=== PATIENT | female | born 1985 | race African-American/Black ===

== ENCOUNTER 2020-07-03 09:57 | Emergency (ER) | payer OTHER ==
[~2020-07-03 09:57] MED LIST: BENTYL10 MG PO; FLEXERIL10 MG PO; MEDROL 4MG DOSEP4 MG PO; PENICILLIN V P250 M1 PO; ZOFRAN ODT4 MG PO/SL
== END 2020-07-03 12:34 | disposition home or self-care (01) ==
LOC: FER 09:57
DX: K05.00 Acute gingivitis, plaque induced (principal); K02.9 Dental caries, unspecified
CPT/HCPCS: 99282; Q0163